=== PATIENT | female | born 1955 | race Two or more races ===

== ENCOUNTER 2021-03-08 16:30 | Outpatient (CLI) | payer MEDICARE, SELFPAY ==
--- NOTE | ~2021-03-08 | MM_ITS ---
EXAMINATION: MM screening eric BI w ghada HISTORY: Screening mammogram TECHNIQUE: Craniocaudal and mediolateral oblique 3-D tomosynthesis images were obtained and synthetic 2-D images were generated. CAD analysis was submitted and interpreted. COMPARISON: No prior mammogram is available for comparison at this institution. BREAST PARENCHYMAL COMPOSITION: There are scattered areas of fibroglandular density. FINDINGS: There is no evidence of suspicious mass, calcification, or architectural distortion to sugg est malignancy in either breast. IMPRESSION: 1. No mammographic evidence of malignancy. 2. Recommend routine screening mammography in one year. BI-RADS Category 1: Negative Reviewed, dictated and finalized at location A.
== END 2021-03-08 16:31 | disposition home or self-care (01) ==
LOC: ANHIMG 16:36
PROVIDERS: PCP Family Medicine; Visit Provider Family Medicine
DX: Z12.31 Encounter for screening mammogram for malignant neoplasm of breast (principal)
CPT/HCPCS: 77063; 77067

== ENCOUNTER 2021-05-01 15:17 | Observation (INO) | payer MEDICARE, SELFPAY ==
--- NOTE | ~2021-05-01 | XR_ITS ---
EXAMINATION: XR hip LT 2V w AP pelvis DATE: 05/01/2021 16:21 INDICATION: Left groin pain post fall TECHNIQUE: Anteroposterior view of the pelvis and anteroposterior and frog-leg lateral views of the l eft hip were obtained. COMPARISON: None. FINDINGS: Minimally displaced fractures of the left superior and inferior pubic rami. No other fractures identi fied. Bilateral hip and sacroiliac joint spaces are relatively preserved . Moderate lumbar spondylosi s. IMPRESSION: 1. Minimally displaced fractures of the left superior and inferior pubic rami. Reviewed, dictated and finalized at location A.
--- NOTE | ~2021-05-01 | XR_ITS ---
EXAMINATION: XR hand LT min 3V, XR wrist LT min 3V DATE: 05/01/2021 16:22 INDICATION: Pain at the ulnar aspect of the left hand and wrist post fall TECHNIQUE: 1. Posteroanterior, ulnar deviation, oblique, and lateral views of the left wrist were obtained. 2. Dorsal palmar, oblique and lateral views of the left hand were obtained. COMPARISON: None. FINDINGS: Diffuse osteopenia. Alignment of the left hand and wrist are normal. There is a linear lucency at the distal articular surface of the radius located on the ulnar side of the scaphoid fossa with nondispl aced fracture. No significant fracture gap or incongruity at the articular cortex. No other fractures identified. Mild polyarticular osteoarthritis at the distal radioulnar, triscaphe, first carpometaca rpal, first metacarpophalangeal and multiple interphalangeal joints with distal predominance. Mild so ft tissue swelling about the left wrist and about the second-fifth proximal interphalangeal joints. IMPRESSION: 1. Nondisplaced intra-articular fracture of the distal left radius. Reviewed, dictated and finalized at location A. IMPRESSION: 1. Nondisplaced intra-articular fracture of the distal left radius.
[2021-05-01 15:19] VITALS: BP 119/59; PULSE 84; RESP 18; TEMP 37.3; O2SAT 99
--- NOTE | 2021-05-01 17:29 | PCCCNOTE ---
Visited pt and her while in ED. Pt unable to speak Trinidadian and indicates to talk with . speaks and understands Trinidadian and states his understands a little Trinidadian. Spoke to them about her needing therapy at discharge and gave them list of home health providers. states any would be fine as long as they accept her insurance which is Medicare and she has a supplement. Discussed her need for help at home and said they have family that can help her/them. Gave the private pay [place] list. states pt is a vegetarian and requests to bring her food. Informed him to talk with her nurse when assigned a room. He is also aware she is unable to have any visitors while in hospital. Pt has her cell phone with her and can use the speaker option if she does not want to use an electronic systems security assessment.
--- NOTE | 2021-05-01 17:30 | ED.GENADULT ---
HPI - General Adult General Chief complaint: Fall Stated complaint: fall, left hip pain Time Seen by Provider: 05/01/21 15:24 Source: patient Mode of arrival: wheelchair Limitations: language barrier (Patient refused translation line- uses family daughter and ) History of Present Illness HPI narrative: Patient is a 65-year-old woman with diabetes presents with chief complaint of pain to left groin that began after falling off of a step stool. Patient states she landed on her buttocks and a basket fell onto her groin area. She states she did lightly tapped the back of her head however she does not have any headache, soreness, loss of consciousness, change in vision or hearing. She denies being on any blood thinners. Patient reports that she cannot bear weight on her left leg. She also reports swelling and pain to the left wrist and hand. She denies any chest pain or shortness of breath. Patient denies any fevers or chills, abdominal pain, leg pain. Related Data Allergies Allergy/AdvReac Type Severity Reaction Status Date / Time acetaminophen [From [place]] AdvReac Gastrointestinal Verified 05/01/21 15:18 Upset hydrocodone [From [place]] AdvReac Gastrointestinal Verified 05/01/21 15:18 Upset Review of Systems Review of Systems: CONSTITUTIONAL: Denies fever, chills, or sweats. EYES: Denies visual changes, redness, or discharge. ENT: Denies rhinorrhea, congestion, sore throat, or otalgia. CARDIOVASCULAR: Denies chest pain, palpitations, or edema. RESPIRATORY: Denies cough or dyspnea. GASTROINTESTINAL: Denies abdominal pain, nausea, vomiting, or diarrhea. GENITOURINARY: Denies dysuria or hematuria. SKIN: Denies rash or itching. MUSCULOSKELETAL: Reports left groin pain and left wrist and hand pain NEUROLOGIC: Denies headache, numbness, dizziness, or weakness. PSYCHIATRIC: Denies anxiety or depression. Exam Narrative: GENERAL: Well-appearing, well-nourished, and in no acute distress. HEAD: Normocephalic, atraumatic. No abrasions or lacerations. Nontender with palpation EYES: PERRLA and EOMI. ENT: Nares clear, no rhinorrhea or epistaxis. Mucous membranes moist. Oropharynx without tonsillar hypertrophy exudate or other lesions. Bilateral TMs pearly morse nonbulging. No hemotympanum. NECK: Supple. No adenopathy or masses. No tenderness to palpation. Range of motion intact. CHEST: Clear to auscultation. No respiratory distress. No wheezes rales or rhonchi HEART: Regular rate and rhythm. Normal peripheral pulses. ABDOMEN: Soft, nontender, nondistended, normal active bowel sounds. EXTREMITIES: Pain with palpation left groin area. Patient can flex both legs at the knee. Patient will not weight-bear on the left leg. Tenderness and swelling to the left wrist and proximal hand. normal range of motion without pain to bilateral arms and legs. No edema. SKIN: Warm, dry, no rash. NEURO: No focal deficits. Alert and oriented x3. PSYCH: Normal mood and affect. Course Vital Signs Vital signs: Vital Signs Temperature 99.1 F 05/01/21 15:19 Pulse Rate 84 05/01/21 15:19 Respiratory Rate 18 05/01/21 15:19 Blood Pressure 119/59 L 05/01/21 15:19 Pulse Oximetry 99 05/01/21 15:19 Temperature 99.1 F 05/01/21 15:19 Pulse Rate 84 05/01/21 15:19 Respiratory Rate 18 05/01/21 15:19 Blood Pressure 119/59 L 05/01/21 15:19 Pulse Oximetry 99 05/01/21 15:19 Medical Decision Making MDM Narrative Medical decision making narrative: Consult Dr. Wilson due to patient's superior and inferior pubic rami fractures along with a left wrist fracture. He states the patient should be admitted to the hospital for further evaluation and management. Patient may need to be discharged to a rehab facility due to wrist injury in concurrence with rami injury. Patient accepted for admission by hospitalist Malaika. Discussed diagnosis and plan of care with patient and her who are in agreement with plans for admission
[2021-05-01 18:26] VITALS: BP 116/63; PULSE 79; RESP 17
[2021-05-01 18:27] VITALS: O2SAT 99
[2021-05-01 18:55] VITALS: BP 144/71; PULSE 72; RESP 18; TEMP 36.2; O2SAT 99
--- NOTE | 2021-05-01 19:01 | ADMGEN ---
This patient, Jessica Gonzalez, was admitted to [facility] Surg Room 305-02 at 1840. Report per Mikal ZARCO Patient/family oriented to hospital policies and general routines including ID bracelet, bed and alarms, visiting hours, pain management, procedures, bathroom and other care routines, personal items, smoking policy, room service/diet, and visiting hours. Information on how to activate the Rapid Response Team has been discussed. Patient/Family are encouraged to report perceived risks to care and to ask questions if they do not understand what they are told or what they should do.
--- NOTE | 2021-05-01 19:06 | PM.IMHP ---
H&P: HPI History of Present Illness Date/Time: 05/01/21 19:06 this is a 65-year-old anion female patient who has a history of diabetes. Although the patient can understand Vietnamese she cannot speak Vietnamese very well. She has her daughter in-law at the bedside answer questions for her. The patient was standing on a stool in her kitchen reaching for something when she fell off and landed on her buttocks and a basket fell on to her growing area. According to the daughter Hassan the patient protected her head as she fell. She is not complaining of any headache or has any hematoma on her head. The patient refuses a CT scan of her head. The patient also refused translation line and uses family and daughter and as her angiographer. The patient denies any chest pain or shortness of breath. The patient denies any blood thinners. The patient is talking on her phone without any difficulty. According to the daughter in all the patient is not confused and she is at her normal mental status. No lab work was performed. The patient was unable to bear weight. She was complaining of left wrist pain. Hip and pelvis x-ray was read as minimally displaced fractures of the LEs. Inferior pubic rami. Wrist x-ray on the left was read as posterior anterior ulnar deviation, oblique and lateral views of the left wrist were obtained. Dorsal palmar, oblique and lateral views of the left hand were obtained. Nondisplaced intra-articular fracture of the distal left radius. The left wrist was casted. Dr. Ann person has been notified. The patient is being admitted to observation status on the date of service of 05/01/2021. Chief Complaint: Left wrist pain and pelvic pain with inability to ambulate Review of Systems Review of Systems: All systems reviewed & are unremarkable except as noted in HPI and below Constitutional: Constitutional: Reports as per HPI and Reports no additional constitutional complaints Eyes: Eyes: Reports as per HPI and Reports no additional eye complaints ENT: Reports system reviewed and no additional complaints, except as documented and Reports Normal hearing present Cardiovascular: Cardiovascular: Reports no additional cardiovascular complaints Respiratory: Respiratory: Reports no additional respiratory complaints and Reports no additional respiratory complaints Gastrointestinal: Gastrointestinal: Reports as per HPI and Reports no additional gastrointestinal complaints Musculoskeletal: Musculoskeletal: Reports no additional musculoskeletal complaints Integumentary/Breasts: Skin/Breast: Reports system reviewed and no additional complaints, except as docu and Reports as per HPI Neurologic: Reports system reviewed and no additional complaints, except as documented, Reports as per HPI and Reports Normal hearing present Psychiatric: Psychiatric: Reports no additional psychiatric complaints and Reports as per HPI Endocrine: Endocrine: Reports no additional endocrine complaints Hematologic/Lymphatic: Hematologic/Lymphatic: Reports no additional hematologic/lymphatic complaints Allergic/Immunologic: Allergic/Immunologic: Reports no additional allergic/immunologic complaints [facility] Past Medical History Medical History (Updated 05/01/21 @ 20:24 by Malaika Rojas NP) DM2 (diabetes mellitus, type 2) Surgical History Surgical History (Updated 05/01/21 @ 20:24 by Malaika Rojas NP) H/O: hysterectomy Secondary to fibroid tumors Family History Family History (Updated 05/01/21 @ 20:24 by Malaika Rojas NP) Father Acute myocardial infarction Social History Social History (Updated 05/01/21 @ 20:28 by Malaika Rojas NP) Social History: The patient is and lives with her family. They on a [employer] station. Her is a durable power personal injury attorney for healthcare. The patient has 2 children. She is a lifelong non smoker and no alcohol or illicit drugs. The patient is a full code. Smoking status: Never smoker
[2021-05-01 21:06] LABS: Basophils Percent Auto 0.3 % (0.2-1.2); Eosinophils Absolute Auto 0.1 K/mm3 (0-0.3); Eosinophils Percent Auto 0.8 % (0-4.4); Hematocrit 34.7 % (37.0-47.0); Hemoglobin 11.2 g/dL (12.0-15.0); Immature Granulocyte Absolute 0.02 K/mm3 (0.00-0.031); Immature Granulocyte Percent A 0.3 % (0-0.5); Lymphocytes Percent Auto 21.3 % (18.3-44.2); Mean Corpuscular HGB Conc 32.3 g/dl (32-36); Mean Corpuscular Hemoglobin 27.8 pg (26-34); Mean Corpuscular Volume 86.1 fl (80-100); Mean Platelet Volume 10.3 fl (7.4-10.4); Monocytes Absolute Auto 0.4 K/mm3 (0.1-0.6); Monocytes Percent Auto 4.8 % (2.6-8.5); Neutrophils Absolute Auto 5.8 K/mm3 (1.3-6.7); Neutrophils Percent Auto 72.5 % (45.5-73.1); Platelet Count Result 223 k/mm3 (150-375); Red Blood Count 4.03 M/mm3 (4.2-5.4)
[2021-05-01 21:17] LABS: Anion Gap 10 mmol/L (8-16); Blood Urea Nitrogen 22 mg/dL (7-17); Calcium 9.3 mg/dL (8.4-10.2); Carbon Dioxide 26 mmol/L (22-30); Chloride 105 mmol/L (98-107); Estimated CRCL calculation 77 ml/min; Estimated Glomerular Filt Rate > 60; Glucose 198 mg/dL (65-110); Potassium 4.3 mmol/L (3.4-5.0); Sodium 141 mmol/L (137-145)
[2021-05-01] MEDS: metFORMIN HCL 500 MG TABLET 1000 MG PO (21:17)
[2021-05-01 21:30] VITALS: BP 124/66; PULSE 79; RESP 16; TEMP 36.3; O2SAT 98
[2021-05-01 22:09] LABS: Glucose Point of Care 158 mg/dl (65-105)
[2021-05-02] MEDS: fentaNYL CITRATE INJ (*CRX) 100 MCG/2 ML VIAL 25 MCG IV PUSH ×4 (02:47→20:47)
[2021-05-02 05:46] VITALS: BP 101/61; PULSE 72; RESP 16; TEMP 36.2; O2SAT 99
[2021-05-02 06:24] LABS: Alanine Aminotransferase 12 U/L (4-35); Albumin Level 4.3 g/dL (3.5-5.1); Alkaline Phosphatase 69 U/L (38-126); Anion Gap 9 mmol/L (8-16); Aspartate Amino Transferase 19 U/L (14-36); Bilirubin,Total 0.5 mg/dL (0.2-1.3); Blood Urea Nitrogen 17 mg/dL (7-17); Calcium 8.9 mg/dL (8.4-10.2); Carbon Dioxide 24 mmol/L (22-30); Chloride 105 mmol/L (98-107); Estimated CRCL calculation 77 ml/min; Estimated Glomerular Filt Rate > 60; Glucose 106 mg/dL (65-110); Magnesium 1.7 mg/dL (1.6-2.3); Potassium 4.1 mmol/L (3.4-5.0); Sodium 138 mmol/L (137-145)
[2021-05-02 06:25] LABS: Basophils Percent Auto 0.3 % (0.2-1.2); Eosinophils Absolute Auto 0.1 K/mm3 (0-0.3); Eosinophils Percent Auto 1.1 % (0-4.4); Hematocrit 35.3 % (37.0-47.0); Hemoglobin 11.2 g/dL (12.0-15.0); Immature Granulocyte Absolute 0.02 K/mm3 (0.00-0.031); Immature Granulocyte Percent A 0.3 % (0-0.5); Lymphocytes Percent Auto 24.1 % (18.3-44.2); Mean Corpuscular HGB Conc 31.7 g/dl (32-36); Mean Corpuscular Hemoglobin 27.4 pg (26-34); Mean Corpuscular Volume 86.3 fl (80-100); Monocytes Absolute Auto 0.3 K/mm3 (0.1-0.6); Monocytes Percent Auto 4.7 % (2.6-8.5); Neutrophils Absolute Auto 4.9 K/mm3 (1.3-6.7); Neutrophils Percent Auto 69.5 % (45.5-73.1); Platelet Count Result 224 k/mm3 (150-375); Red Blood Count 4.09 M/mm3 (4.2-5.4); Red Cell Distribution Width 13.9 % (11.5-14.5)
[2021-05-02 06:54] LABS: Hemoglobin A1C 6.3 % (<5.7)
[2021-05-02 08:12] LABS: Glucose Point of Care 113 mg/dl (65-105)
--- NOTE | 2021-05-02 08:49 | PCOTNOTE ---
waiting for ortho consult to complete OT evaluation, will follow.
--- NOTE | 2021-05-02 10:10 | PM.CNOR ---
Assessment and Plan Assessment and plan (1) Fracture of inferior pubic ramus: Qualifiers: Encounter type: initial encounter Fracture type: closed Laterality: left Qualified Code(s): S32.592A - Other specified fracture of left pubis, initial encounter for closed fracture <ROXANN Church - Last Filed: 05/02/21 12:11> Code(s): S32.599A - Other specified fracture of unspecified pubis, initial encounter for closed fracture <ROXANN Church - Last Filed: 05/02/21 12:11> Status: Acute <ROXANN Church - Last Filed: 05/02/21 12:11> (2) Fracture of left superior pubic ramus: Qualifiers: Encounter type: initial encounter Fracture type: closed Qualified Code(s): S32.512A - Fracture of superior rim of left pubis, initial encounter for closed fracture <ROXANN Church - Last Filed: 05/02/21 12:11> Code(s): S32.512A - Fracture of superior rim of left pubis, initial encounter for closed fracture <ROXANN Church - Last Filed: 05/02/21 12:11> Status: Acute <ROXANN Church - Last Filed: 05/02/21 12:11> (3) Distal radius fracture: Qualifiers: Encounter type: initial encounter Fracture morphology: other intra-articular Fracture type: closed Laterality: left Qualified Code(s): S52.572A - Other intraarticular fracture of lower end of left radius, initial encounter for closed fracture <ROXANN Church - Last Filed: 05/02/21 12:11> Code(s): S52.509A - Unspecified fracture of the lower end of unspecified radius, initial encounter for closed fracture <ROXANN Church - Last Filed: 05/02/21 12:11> Status: Acute <ROXANN Church - Last Filed: 05/02/21 12:11> Assessment and Plan: Patient presented to the ER after a fall from standing height. She fell backwards with a 15 lb bucket landing on her pelvis. She also fell directly to her left wrist. Mild pain at rest. Splint on wrist intact. Patient understands some Azeri. Her daughter in law is with her and acting as a electronics scale tester. Fractures of pelvic rami may be treated nonoperatively. She will need home health for PT and OT. WBAT with walker. Left nondisplaced radial styloid fracture may be treated nonoperatively. She is currently in a splint. Will apply cast prior to discharge. partial weight bearing with left arm using a walker. Patient and family would like patient to be discharged home. She has multiple people at home that can help her. She will need home health PT and OT. Discharge pending pain control and cast application. Plan for follow up in office in 1 month for cast removal and xrays. <ROXANN Church - Last Filed: 05/02/21 12:11> Additional Plan Patient seen and examined. Agree with above documentation. Pubic ramus fracture should heal well in 4-6 weeks. Wrist fracture will be treated with a cast for approximately 4 weeks then a removable splint. Follow up as an outpatient in 4 weeks. Discussed care plan at length with the patient and her daughter. Anticipate several days of pain control and physical therapy. While most patients ultimately discharge to rehab or [facility], this patient may do quite well at home. <Sushant Wilson MD - Last Filed: 05/02/21 16:38> History of Present Illness HPI Consult date: 05/02/21 <ROXANN Church - Last Filed: 05/02/21 12:11> 05/02/21 <Sushant Wilson MD - Last Filed: 05/02/21 16:38> Chief complaint: Superior & Inferior Pubic Ramas Fracture <ROXANN Church - Last Filed: 05/02/21 12:11> Narrative: Patient was admitted through the ER after a fall in her home. She was found to have pelvic rami fractures as well as a left radial styloid fracture. Her wrist was splinted in the ER. She was sitting on a stool putting groceries away when she fell backwards onto her left wrist
--- NOTE | 2021-05-02 10:33 | PM.IMPN ---
Progress Note: A&P Assessment and Plan (1) Fall: Code(s): W19.XXXA - Unspecified fall, initial encounter Status: Acute Assessment and Plan: Patient fell from a stool while reaching up to put away groceries. She fell onto her back/buttocks, catching herself with her left arm. Then the grocery basked fell onto her lap. Daughter reports she did not hit her head or lose consciousness Head CT declined by patient per previous provider Fall precautions in place Orthopedic surgery consultation as below (2) Fracture of inferior pubic ramus: Qualifiers: Encounter type: initial encounter Fracture type: closed Laterality: left Qualified Code(s): S32.592A - Other specified fracture of left pubis, initial encounter for closed fracture Code(s): S32.599A - Other specified fracture of unspecified pubis, initial encounter for closed fracture Status: Acute Assessment and Plan: Secondary to fall. Hip/pelvis x-ray shows minimally displaced fractures of left superior and inferior pubic rami Appreciate orthopedic surgery consultation She will need PT and OT eval is following ortho eval Analgesics available as needed Supportive care to include ice and heat as needed Care coordination following, considering home health. Patient wishes to return home and does not wish to consider rehab (3) Fracture of left superior pubic ramus: Qualifiers: Encounter type: initial encounter Fracture type: closed Qualified Code(s): S32.512A - Fracture of superior rim of left pubis, initial encounter for closed fracture Code(s): S32.512A - Fracture of superior rim of left pubis, initial encounter for closed fracture Status: Acute Assessment and Plan: As above (4) Distal radius fracture: Qualifiers: Encounter type: initial encounter Fracture morphology: other intra-articular Fracture type: closed Laterality: left Qualified Code(s): S52.572A - Other intraarticular fracture of lower end of left radius, initial encounter for closed fracture Code(s): S52.509A - Unspecified fracture of the lower end of unspecified radius, initial encounter for closed fracture Status: Acute Assessment and Plan: Secondary to fall Wrist x-ray showed nondisplaced intra-articular fracture of the distal left radius Appreciate orthopedic surgery consultation Analgesics and supportive care as above Continue splint, applied in ED (5) DM2 (diabetes mellitus, type 2): Code(s): E11.9 - Type 2 diabetes mellitus without complications Status: Chronic Assessment and Plan: A1c is 6.3. Blood sugars have been well controlled today Continue Accu-Cheks, sliding scale insulin, hypoglycemic protocol Continue home metformin and Jardiance Monitor blood sugar trends and adjust medication regimen as needed Subjective Date/time seen: 05/02/21 10:33 Interval history: Date of service: 05/02/2021 Jessica Gonzalez is a 65-year-old female with a history of type 2 diabetes mellitus who is seen in follow-up for pubic ramus and left distal radius fracture after a fall. She is doing okay at this time. She complains of left hip and groin pain that she rates as 6/10. When she shifts or rotates in bed, her pain increases to 10+. She denies numbness or tingling of the lower extremities. No radicular pain symptoms. She also complains of discomfort in her left arm that she rates as 1 and 10. The arm feels heavy with the splint and she is having some itching underneath the splint. She feels that her fingers are somewhat swollen. Otherwise, she has no concerns. She has been eating well. Denies nausea, vomiting, fever, chills. No shortness of breath, cough, or chest pain. She denies dysuria or hematuria. Her daughter notes a strong odor to her urine and feels that maybe she was not drinking enough water. Last bowel movement was yesterday. Denies abdomina
[2021-05-02] MEDS: metFORMIN HCL 500 MG TABLET 1000 MG PO ×2 (13:02→20:16)
[2021-05-02 13:07] LABS: Glucose Point of Care 96 mg/dl (65-105)
[2021-05-02 14:00] VITALS: BP 135/76; PULSE 74; RESP 16; TEMP 36.8; O2SAT 99
[2021-05-02 16:49] LABS: Glucose Point of Care 74 mg/dl (65-105)
[2021-05-02 20:00] VITALS: PULSE 79; RESP 16; O2SAT 99
[2021-05-02 20:14] VITALS: PULSE 74; RESP 16; O2SAT 99
[2021-05-02 20:25] LABS: Glucose Point of Care 131 mg/dl (65-105)
[2021-05-02] MEDS: FAMOTIDINE 20 MG TABLET PO (20:49)
[2021-05-02 21:23] VITALS: BP 139/73; PULSE 79; RESP 16; TEMP 36.3; O2SAT 99
[2021-05-03 08:00] VITALS: PULSE 79; RESP 16; O2SAT 99
[2021-05-03 08:10] LABS: Glucose Point of Care 117 mg/dl (65-105)
[2021-05-03] MEDS: metFORMIN HCL 500 MG TABLET 1000 MG PO ×2 (08:23→17:21)
[2021-05-03] MEDS: FAMOTIDINE 20 MG TABLET PO ×2 (08:23→21:00)
[2021-05-03 08:50] LABS: Anion Gap 12 mmol/L (8-16); Blood Urea Nitrogen 12 mg/dL (7-17); Calcium 9.5 mg/dL (8.4-10.2); Carbon Dioxide 25 mmol/L (22-30); Chloride 104 mmol/L (98-107); Estimated CRCL calculation 77 ml/min; Estimated Glomerular Filt Rate > 60; Glucose 113 mg/dL (65-110); Potassium 4.5 mmol/L (3.4-5.0); Sodium 141 mmol/L (137-145)
[2021-05-03 09:15] LABS: Hematocrit 37.2 % (37.0-47.0); Mean Corpuscular HGB Conc 32.3 g/dl (32-36); Mean Corpuscular Hemoglobin 27.3 pg (26-34); Mean Corpuscular Volume 84.7 fl (80-100); Mean Platelet Volume 10.9 fl (7.4-10.4); Platelet Count Result 236 k/mm3 (150-375); Red Blood Count 4.39 M/mm3 (4.2-5.4); Red Cell Distribution Width 13.8 % (11.5-14.5); White Blood Count 6.4 K/mm3 (4.5-10.0)
[2021-05-03 11:57] LABS: Glucose Point of Care 140 mg/dl (65-105)
[2021-05-03 14:00] VITALS: BP 116/63; PULSE 85; RESP 16; TEMP 36.4; O2SAT 100
--- NOTE | 2021-05-03 16:09 | PM.IMPN ---
Progress Note: A&P Assessment and Plan (1) Fall: Code(s): W19.XXXA - Unspecified fall, initial encounter Status: Acute Assessment and Plan: Patient fell from a stool while reaching up to put away groceries. She fell onto her back/buttocks, catching herself with her left arm. Then the grocery basked fell onto her pelvis. Daughter reports she did not hit her head or lose consciousness Head CT declined by patient per previous provider Fall precautions in place Orthopedic surgery consultation as below (2) Fracture of inferior pubic ramus: Qualifiers: Encounter type: initial encounter Fracture type: closed Laterality: left Qualified Code(s): S32.592A - Other specified fracture of left pubis, initial encounter for closed fracture Code(s): S32.599A - Other specified fracture of unspecified pubis, initial encounter for closed fracture Status: Acute Assessment and Plan: Secondary to fall. Hip/pelvis x-ray shows minimally displaced fractures of left superior and inferior pubic rami Appreciate orthopedic surgery consultation. Being managed conservatively. Appreciate PT/OT evals. Analgesics available as needed Supportive care to include ice and heat as needed Care coordination following, planning for home health on discharge. (3) Fracture of left superior pubic ramus: Qualifiers: Encounter type: initial encounter Fracture type: closed Qualified Code(s): S32.512A - Fracture of superior rim of left pubis, initial encounter for closed fracture Code(s): S32.512A - Fracture of superior rim of left pubis, initial encounter for closed fracture Status: Acute Assessment and Plan: As above (4) Distal radius fracture: Qualifiers: Encounter type: initial encounter Fracture morphology: other intra-articular Fracture type: closed Laterality: left Qualified Code(s): S52.572A - Other intraarticular fracture of lower end of left radius, initial encounter for closed fracture Code(s): S52.509A - Unspecified fracture of the lower end of unspecified radius, initial encounter for closed fracture Status: Acute Assessment and Plan: Secondary to fall Wrist x-ray showed nondisplaced intra-articular fracture of the distal left radius Appreciate orthopedic surgery consultation Continue splint applied in ED. Planning for casting per ortho. Analgesics and supportive care as above (5) DM2 (diabetes mellitus, type 2): Code(s): E11.9 - Type 2 diabetes mellitus without complications Status: Chronic Assessment and Plan: A1c is 6.3. Blood sugars have been well controlled Continue Accu-Cheks, sliding scale insulin, hypoglycemic protocol Continue home metformin and Jardiance Monitor blood sugar trends and adjust medication regimen as needed Subjective Date/time seen: 05/03/21 16:09 Interval history: Date of service: 05/03/2021 Jessica Gonzalez is a 65-year-old female with a history of type 2 diabetes mellitus who is seen in follow-up for pubic ramus and left distal radius fracture after a fall. She is feeling better today. She rates her arm pain is 2-3/10. At rest, she has no pelvic pain but with movement she rates her pain up to 7-8/10. She was able to get up with therapy and seems to tolerate this well. She denies shortness breath, cough, chest pain. No nausea, vomiting, fever, chills, abdominal pain. She has been eating and drinking well. She slept well last night. Denies urinary symptoms. Her daughter is present at the bedside to provide translation. The patient is able to understand Scottish well and can nod in response, but not able to speak Scottish. Her daughter would like her to have a medical bed at home before she leaves so that she can get up from the bed more easily. Review of Systems Review of Systems: All systems reviewed & are unremarkable except as noted in HPI a
[2021-05-03 16:31] LABS: Glucose Point of Care 107 mg/dl (65-105)
[2021-05-03] MEDS: ACETAMINOPHEN 325 MG TABLET 650 MG PO (21:06)
[2021-05-03 21:33] LABS: Glucose Point of Care 136 mg/dl (65-105)
[2021-05-03 21:47] VITALS: BP 117/71; PULSE 82; RESP 16; TEMP 36.7; O2SAT 99
[2021-05-04 05:48] VITALS: BP 131/66; PULSE 67; RESP 16; TEMP 36.4; O2SAT 100
[2021-05-04 08:00] VITALS: PULSE 67; RESP 16; O2SAT 100
[2021-05-04] MEDS: ACETAMINOPHEN 325 MG TABLET 650 MG PO (08:38)
[2021-05-04] MEDS: FAMOTIDINE 20 MG TABLET PO (08:38)
[2021-05-04 08:49] LABS: Glucose Point of Care 117 mg/dl (65-105)
[2021-05-04] MEDS: metFORMIN HCL 500 MG TABLET 1000 MG PO (10:29)
--- NOTE | 2021-05-04 11:10 | PM.PNORT ---
Progress Note: A&P Assessment and Plan (1) Fracture of inferior pubic ramus: Qualifiers: Encounter type: initial encounter Fracture type: closed Laterality: left Qualified Code(s): S32.592A - Other specified fracture of left pubis, initial encounter for closed fracture Code(s): S32.599A - Other specified fracture of unspecified pubis, initial encounter for closed fracture Status: Acute (2) Fracture of left superior pubic ramus: Qualifiers: Encounter type: initial encounter Fracture type: closed Qualified Code(s): S32.512A - Fracture of superior rim of left pubis, initial encounter for closed fracture Code(s): S32.512A - Fracture of superior rim of left pubis, initial encounter for closed fracture Status: Acute (3) Distal radius fracture: Qualifiers: Encounter type: initial encounter Fracture morphology: other intra-articular Fracture type: closed Laterality: left Qualified Code(s): S52.572A - Other intraarticular fracture of lower end of left radius, initial encounter for closed fracture Code(s): S52.509A - Unspecified fracture of the lower end of unspecified radius, initial encounter for closed fracture Status: Acute Assessment and Plan: Patient presented to the ER after a fall from standing height on 05/01/21. She fell backwards with a 15 lb bucket landing on her pelvis. She also fell directly to her left wrist. Mild pain at rest. Splint on wrist intact. Patient understands some Divehi. Her daughter in law is with her and acting as a size tester. Fractures of pelvic rami may be treated nonoperatively. She will need home health for PT and OT. WBAT with walker limited on pain. Will heal in 4-6 weeks. Left nondisplaced radial styloid fracture may be treated nonoperatively. Plan for cast for 4 weeks followed by removable splint. Partial weight bearing with left arm using a walker. Patient will be discharged home with home health and PT/OT. Her daughter in law is working on getting her a hospital bed. Patient has had N/V with narcotic pain medication in the past. After discussion with daughter in law and patient, she is okay with alternating Tylenol and Ibuprofen for pain control. Plan for follow up in office as an outpatient in 1 month for cast removal and xrays. Orthopedic instructions: Cast applied to left arm 05/03/21. Partial weight bearing with walker for 4 weeks. PT: For pubic fractures: Weight bearing as tolerated with walker. Follow up in the office ([facility] [address] [place] [address]) in 4 weeks with xrays. Plan to remove cast and brace at that time. Please call office to schedule appointment. . Pain: Tylenol and ibuprofen. Call the office with and questions or concerns. DVT Prophylaxis Xeralto 10 mg for 30 days. Subjective Subjective Date/Time Seen: 05/04/21 11:10 Patient was admitted through the ER after a fall in her home 05/01/21. She was found to have pelvic rami fractures as well as a left radial styloid fracture. Her wrist was splinted in the ER. She was sitting on a stool putting groceries away when she fell backwards onto her left wrist and a 15 lb bucket fell onto her pelvis. She complains of only minor aches and pains. No other complaints. Patient's daughter in law in room with patient and acting as an haz tech. Pain with movement. Patient and family are very motivated about going home instead of SNF. She has family that are home to help her. Mild pain today. Controlled with Tylenol. No other complaints. Objective Data Vital Signs Vital Signs: Vital Signs - 24 hr 05/03/21 14:00 05/03/21 21:47 05/04/21 05:48 Temperature 97.6 F 98.1 F 97.6 F Pulse Rate 85 82 67 Respiratory Rate 16 16 16 Blood Pressure 116/63 117/71 131/66 Pulse Oximetry 100 99 100 Intake/Output Intake/Output: Intake & Output 05/01/21 05/02/21 05/03/21 05/04/21 23:59 23:59 23:59 23:59 Intake Total 10
[2021-05-04 11:38] LABS: Glucose Point of Care 263 mg/dl (65-105)
--- NOTE | 2021-05-04 12:00 | PM.DS ---
DS: Admitting Diagnosis Discharge Date 05/04/2021 Admitting Diagnosis Fall, pubic ramus fracture DS: Discharge Diagnosis Discharge Diagnosis (1) Fall: Qualifiers: Encounter type: initial encounter Qualified Code(s): W19.XXXA - Unspecified fall, initial encounter Code(s): W19.XXXA - Unspecified fall, initial encounter Status: Acute Assessment and Plan: Patient fell from a stool while reaching up to put away groceries. She fell onto her back/buttocks, catching herself with her left arm. Then the grocery basked fell onto her pelvis. Daughter reports she did not hit her head or lose consciousness Head CT declined by patient per admitting provider Fall precautions discussed Orthopedic surgery consultation as below Evaluated by PT/OT and home health was arranged (2) Fracture of inferior pubic ramus: Qualifiers: Encounter type: initial encounter Fracture type: closed Laterality: left Qualified Code(s): S32.592A - Other specified fracture of left pubis, initial encounter for closed fracture Code(s): S32.599A - Other specified fracture of unspecified pubis, initial encounter for closed fracture Status: Acute Assessment and Plan: Secondary to fall. Hip/pelvis x-ray showed minimally displaced fractures of left superior and inferior pubic rami Managed conservatively by Orthopedic surgery Appreciate PT/OT evals. Continue with home health Supportive care provided including ice, heat, analgesics. Weightbearing as tolerated with walker her ortho. Follow-up in 4 weeks (3) Fracture of left superior pubic ramus: Qualifiers: Encounter type: initial encounter Fracture type: closed Qualified Code(s): S32.512A - Fracture of superior rim of left pubis, initial encounter for closed fracture Code(s): S32.512A - Fracture of superior rim of left pubis, initial encounter for closed fracture Status: Acute Assessment and Plan: As above (4) Distal radius fracture: Qualifiers: Encounter type: initial encounter Fracture morphology: other intra-articular Fracture type: closed Laterality: left Qualified Code(s): S52.572A - Other intraarticular fracture of lower end of left radius, initial encounter for closed fracture Code(s): S52.509A - Unspecified fracture of the lower end of unspecified radius, initial encounter for closed fracture Status: Acute Assessment and Plan: Secondary to fall Wrist x-ray showed nondisplaced intra-articular fracture of the distal left radius Manage conservatively per Orthopedic surgery. Splint applied in the ED. Cast was later applied per Ortho Continue partial weight-bearing with walker Outpatient follow-up in 4 weeks for repeat x-rays Supportive care as above (5) DM2 (diabetes mellitus, type 2): Code(s): E11.9 - Type 2 diabetes mellitus without complications Status: Chronic Assessment and Plan: A1c is 6.3. Blood sugars were well controlled during hospital stay, manage with Accu-Cheks, sliding scale insulin, hypoglycemic protocol. Continue home metformin and Jardiance. DS: Summary Hospital Course Hospital Course: Date of admission: 05/01/2021 Date of discharge: 05/04/2021 Jessica Gonzalez is a 65-year-old female with a history of type 2 diabetes mellitus who presented to the emergency department on 05/01/2021 with complaints of left groin pain after falling off a stool and landing on her buttocks as well as left wrist and hand pain. On presentation to the emergency department, her vital signs are stable, she was afebrile, hand/wrist x-ray showed nondisplaced intra-articular fracture of the distal left radius and hip/pelvis x-ray showed minimally displaced fractures of the left superior inferior pubic rami. She was admitted to the hospitalist service for further evaluation management was seen in consultation by Orthopedic surgery. Please see a
== END 2021-05-04 13:50 | disposition home health service (06) ==
LOC: ANHED 17:38 → ANH3MEDSUR 18:13
PROVIDERS: Nurse Practitioner; Physician Assistant; Admitting Provider Internal Medicine; Emergency Provider Emergency Medicine; PCP Family Medicine; Visit Provider Family Medicine
DX: S32.592A Other specified fracture of left pubis, initial encounter for closed fracture (principal); S52.572A Other intraarticular fracture of lower end of left radius, initial encounter for closed fracture; W19.XXXA Unspecified fall, initial encounter; R10.2 Pelvic and perineal pain; E11.9 Type 2 diabetes mellitus without complications; Z23 Encounter for immunization; Z79.84 Long term (current) use of oral hypoglycemic drugs
CPT/HCPCS: 36415; 73110; 73130; 73502; 80048; 80053; 82948; 83036; 83735; 84443; 85025; 85027; 90471; 90653; 96374; 96376; 97162; 97165; 99285; A9270; G0008; G0378; J3010

== ENCOUNTER 2022-10-12 08:59 | Outpatient (CLI) | payer MEDICARE, SELFPAY ==
--- NOTE | 2022-10-12 | ECHO_ITS ---
Patient Info Name: Jessica Gonzalez Age: 66 years : 1955 Gender: Female Ht: 63 in Wt: 135 lbs BSA: 1.66 m2 HR: 67 bpm BP: 119 / 80 mmHg Heart Rhythm: Sinus Rhythm Technical Quality: Good Exam Date: 10/12/2022 9:17 AM Exam Location: [facility] Patient Status: Outpatient Admit Date: 10/12/2022 Staff Ordering Physician: Carlos, Chaka ERWIN Volunteer Coordinator: Lizabeth Iqbal RDCS Attending Provider: Carlos, Chaka ERWIN Exam Type: CA echo doppler color flow Study Info Indications R01.1 - Cardiac murmur, unspecified Complete two-dimensional, color flow and Doppler transthoracic echocardiogram is performed. Summary 1. Complete two-dimensional, color flow and Doppler transthoracic echocardiogram is performed. 2. Mild concentric left ventricular hypertrophy with normal systolic function. 3. Mild to moderate aortic valve stenosis, valve area estimate 1.3 cm2. 4. Trivial mitral regurgitation. Left Ventricle Left ventricular chamber dimension is normal. Left ventricular systolic function is normal, estimated at 60-65%. There is mild concentric increased left ventricular wall thickness. The left ventricular diastolic function is grade I diastolic dysfunction. Right Ventricle Right ventricular chamber dimension is normal. Left Atria Left atrial chamber dimension is normal. Right Atria Right atrial chamber dimension is normal. Aortic Valve The aortic valve is trileaflet. There is moderate aortic valve sclerosis. There is mild to moderate aortic valve stenosis with a peak velocity of 197 cm/s, mean gradient of 8 mmHg, and aortic valve area of 1.4 cm2. There is no aortic valve regurgitation. Pulmonic Valve The pulmonic valve is normal. Mitral Valve The mitral valve has normal leaflets. There is trace mitral valve regurgitation. Tricuspid Valve The tricuspid valve leaflets are normal. Pericardium/Pleural The pericardium appears normal. Aorta The aortic root size at the sinus of Valsalva is normal. Left Ventricular Outflow Tract Name Value Normal LVOT 2D LVOT Diameter 1.9 cm LVOT Doppler LVOT Peak Gradient 3 mmHg LVOT Mean Gradient 2 mmHg LVOT VTI 23 cm LVOT VTI/AV VTI Ratio 0.5 LVOT Stroke Volume 65 ml LVOT CO 3.9 l/min LVOT CI 2.4 l/min/m2 Pulmonic Valve Name Value Normal RVOT Doppler RVOT Peak Gradient 2 mmHg PV Doppler PV Peak Gradient 2 mmHg Mitral Valve Name Value Normal --
== END 2022-10-12 09:00 | disposition home or self-care (01) ==
PROVIDERS: PCP Family Medicine; Visit Provider Family Medicine
DX: R01.1 Cardiac murmur, unspecified (principal); I35.1 Nonrheumatic aortic (valve) insufficiency
CPT/HCPCS: 93306

== ENCOUNTER 2023-05-01 19:40 | Emergency (ER) | payer MEDICARE, SELFPAY ==
--- NOTE | ~2023-05-01 | XR_ITS ---
EXAMINATION: XR foot LT min 3V DATE: 05/01/2023 20:17 INDICATION: Left foot pain TECHNIQUE: Dorsoplantar, lateral, and 2 oblique views of the left foot were obtained. COMPARISON: None. FINDINGS: Bone alignment is normal. There is no fracture. 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 Posterior and plantar calcaneal enthesophytes are noted. IMPRESSION: 1. No acute osseous abnormality. Reviewed, dictated and finalized at location F.
[2023-05-01 20:00] VITALS: BP 149/73; PULSE 77; RESP 14; TEMP 36.5; O2SAT 100
--- NOTE | 2023-05-01 22:21 | ED.LOWEXIN ---
HPI - Extremity Injury (Lower) General Chief Complaint: Extremity Injury, Lower Stated Complaint: fall with left foot injury Time Seen by Provider: 05/01/23 22:00 History of Present Illness HPI Narrative: 67-year-old female reports for evaluation for left foot pain after she rolled her foot a couple hours prior to arrival. Patient presents with her daughter who assist with history. The patient was walking outside when she saw a dog that startled her and she rolled her left foot. She did not fall to the ground, no other injuries acquired. She is reporting difficulty walking and pain overlying her proximal first through fourth metatarsal as well as associated swelling. She has not taken anything for pain. Related Data Home Medications Medication Instructions Recorded Confirmed empagliflozin 25 mg tablet 25 mg PO HS 05/01/21 07/01/21 (Jardiance) metformin 1,000 mg tablet 1,000 mg PO BID 05/01/21 07/01/21 Allergies Allergy/AdvReac Type Severity Reaction Status Date / Time acetaminophen [From Perry] AdvReac Gastrointestinal Verified 05/01/23 19:41 Upset hydrocodone [From Perry] AdvReac Gastrointestinal Verified 05/01/23 19:41 Upset Review of Systems Review of Systems: CONSTITUTIONAL: Denies fever, chills EYES: Denies visual changes, redness, or discharge. ENT: Denies rhinorrhea, congestion, sore throat, or otalgia. CARDIOVASCULAR: Denies chest pain, palpitations, or edema. RESPIRATORY: Denies cough or dyspnea. GASTROINTESTINAL: Denies abdominal pain, nausea, vomiting, or diarrhea. GENITOURINARY: Denies dysuria or hematuria. SKIN: Denies rash or itching. MUSCULOSKELETAL: See HPI NEUROLOGIC: Denies headache, numbness, dizziness, or weakness. PSYCHIATRIC: Denies anxiety or depression. FOR[facility]LY [facility] Past Medical History Medical History DM2 (diabetes mellitus, type 2) Surgical History Surgical History H/O: hysterectomy Secondary to fibroid tumors Family History Family History Father Acute myocardial infarction Social History Social History Social History: The patient is and lives with her family. They on a gas station. Her is a durable power litigation attorney for healthcare. The patient has 2 children. She is a lifelong non smoker and no alcohol or illicit drugs. The patient is a full code. Smoking status: Never smoker Alcohol intake: never Substance use: never Substance use type: does not use Spiritual care concerns: No Exam Narrative: GENERAL: Well-appearing, in no acute distress. HEAD: Normocephalic NECK: Supple. CHEST: No respiratory distress. Clear to auscultation, no adventitious breath sounds. HEART: Regular rate and rhythm. No murmur heard. Normal peripheral pulses. ABDOMEN: Soft, nontender, normal active bowel sounds. EXTREMITIES: Left foot with edema and tenderness along the dorsum of the proximal 1-4 metatarsals. Full range of motion of toes and ankle. No tenderness to remainder of lower extremity. Full range of motion of hip and knee. DP pulse 2+. Cap refill less than 2. Sensation intact throughout. SKIN: Warm, dry, no rash. NEURO: No focal deficits. Alert and oriented x3. PSYCH: Normal mood and affect. Course Vital Signs Vital signs: Vital Signs Temperature 97.7 F 05/01/23 20:00 Pulse Rate 77 05/01/23 20:00 Respiratory Rate 14 05/01/23 20:00 Blood Pressure 149/73 H 05/01/23 20:00 Pulse Oximetry 100 05/01/23 20:00 Oxygen Delivery Room Air 05/01/23 20:00 Temperature 97.7 F 05/01/23 20:00 Pulse Rate 77 05/01/23 20:00 Respiratory Rate 14 05/01/23 20:00 Blood Pressure 149/73 H 05/01/23 20:00 Pulse Oximetry 100 05/01/23 20:00 Oxygen Delivery Room Air 05/01/23 20:00 MDM
[2023-05-01] MEDS: ACETAMINOPHEN 500 MG TABLET 1000 MG PO (22:40)
== END 2023-05-01 22:56 | disposition home or self-care (01) ==
PROVIDERS: Emergency Provider Physician Assistant; PCP Family Medicine
DX: S93.602A Unspecified sprain of left foot, initial encounter (principal); E11.9 Type 2 diabetes mellitus without complications; Z79.84 Long term (current) use of oral hypoglycemic drugs
CPT/HCPCS: 73630; 99283; A9270

== ENCOUNTER 2025-05-15 08:55 | Outpatient (CLI) | payer MEDICARE, SELFPAY ==
--- NOTE | ~2025-05-15 | MM_ITS ---
EXAMINATION: MM screening eric BI w ghada HISTORY: Screening TECHNIQUE: Craniocaudal and mediolateral oblique 3-D tomosynthesis images were obtained and synthetic 2-D images were generated. CAD analysis was submitted and interpreted. COMPARISON: 03/08/2021 BREAST PARENCHYMAL COMPOSITION: The breasts are almost entirely fatty. FINDINGS: There is no evidence of suspicious mass, calcification, or architectural distortion to suggest malignancy in either breast. IMPRESSION: 1. No mammographic evidence of malignancy. 2. Recommend routine screening mammography in one year. BI-RADS Category 1: Negative Reviewed, dictated and finalized at location B.
== END 2025-05-15 08:56 | disposition home or self-care (01) ==
LOC: MICIMG 08:56
PROVIDERS: PCP Family Medicine; Visit Provider Family Medicine
DX: Z12.31 Encounter for screening mammogram for malignant neoplasm of breast (principal)
CPT/HCPCS: 77063; 77067